=== PATIENT | male | born 1970 | race Two or more races ===

== ENCOUNTER 2025-10-22 15:21 | Emergency (ER) | payer OTHER, SELFPAY ==
[2025-10-22 15:36] VITALS: BP 153/92
[2025-10-22 16:10] LABS: Hematocrit 48.6 % (39.0-52.0); Hemoglobin 15.8 g/dL (13.0-18.0); Mean Corp Hgb Conc. 32.5 g/dL (33.0-37.0); Mean Corpuscular Volume 81.5 fL (80.0-94.0); Nucleated Red Blood Cells % 0 % (-); Platelet Count 324 10^3/uL (130-400); Red Cell Dist. Width 13.0 % (11.5-14.5)
[2025-10-22 16:20] LABS: INR 1.05; PT 13.8 Sec (11.4-14.6)
[2025-10-22 16:23] LABS: ALT (SGPT) 35 U/L (0-50); AST (SGOT) 29 U/L (17-59); Albumin 4.9 g/dl (3.5-5.0); Alkaline Phosphatase 114 U/L (38-126); Blood Urea Nitrogen 14 mg/dl (9-20); Calcium 9.7 mg/dl (8.4-10.2); Carbon Dioxide 25 mmol/L (22-30); Chloride 102 mmol/L (98-107); Glucose 132 mg/dl (70-99); Potassium 3.8 mmol/L (3.5-5.1); Sodium 137 mmol/L (135-145); Total Protein 8.7 g/dl (6.3-8.2); eGFR > 60.00
[2025-10-22 16:34] LABS: Troponin I < 0.012 ng/ml
[2025-10-22 16:54] VITALS: BP 132/85
--- NOTE | 2025-10-22 20:20 | ED.CVA ---
History of Present Illness
General
Chief Complaint: CVA/TIA Symptoms
Source: patient and family
Exam Limitations: none
Time Seen by Provider: 10/22/25 19:55
Nursing documentation reviewed up to this point in time: agreed with
Onset of Stroke Symptoms
Onset of symptoms known: Yes
Date of onset of symptoms: 10/22/25
Time of onset of symptoms: 12:00
History of Present Illness
History of Present Illness:
55-year-old male originally from [facility] now works in the [employer] company with his family around 12 noon for an hour he had some numbness of his left arm possibly his left leg no slurred speech, no headache no visual changes, ex-smoker none recently,
tells me last blood work A1c was a bit elevated not on meds, now feels pretty much back to his baseline, history confirmed through his family member she states he looks at his baseline speech appears clear
Past History
Past History
ED Past Medical History: NIDDM (Slightly elevated A1c); Negative HTN
Social History
Tobacco: Former smoker
Alcohol: None
Drug: None
Personal:
Living: with family
Employment: Employed
Review of Systems
Review of Systems
All Other Systems: Not applicable
Constitutional: Denies fever
EENT: Reports no symptoms
Respiratory: Reports no symptoms
Cardiac: Reports no symptoms
ABD/GI: Reports no symptoms
: Reports no symptoms
Musculoskeletal: Reports no symptoms
Neurological: Reports numbness; Denies dizzy, headache or weakness
Phy Exam
Physical Exam
Physical Exam:
Physical Exam
General: no apparent distress, not acutely ill
Neck: No jaundice
Heart: s1/s2 regular rate and rhythm, no murmur. equal radial pulses.
Lungs: no acute respiratory distress. clear bilaterally
Abdomen: Nontender
Neuro: alert and oriented. no focal neurological deficits
Skin: no rash
Psychiatric: well kept. interactive and cooperative
Extremities: no edema.
Scores
NIH Stroke Score
Level of Consciousness: 0 - Alert
LOC Questions: 0-Answers both correctly
LOC Commands: 0-Performs both correctly
Best Horizontal Gaze: 0-Normal
Visual Levi: 0=Normal, no visual loss
Facial Palsy: 0=Normal, symmetrical
Motor - Right Arm: 0=No drift 10 seconds
Motor - Left Arm: 0=No drift 10 seconds
Motor - Right Le-No drift 5 seconds
Motor - Left Le-No drift 5 seconds
Limb Ataxia: 0-Absent
Sensation: 0-Normal
Best Language: 0-No aphasia
Dysarthria: 0-Normal
Extinction and Inattention: 0-No abnormality
NIH Total Score:: 0
Course
Orders/Labs/Results
Orders:
Orders
10/22/25 15:39
Electrocardiogram (*1) Urgent
Reason for Study: Chest Pain
10/22/25 15:40
EKG- Treatment ONCE
10/22/25 15:45
Complete Blood Count/With Diff Urgent
Comprehensive Metabolic Panel Urgent
Prothrombin Time Urgent
Troponin I Urgent
10/22/25 20:04
CT Head & Neck Angio W/wo IV Urgent
Comment:
Reason For Exam: left arm numbnress
10/22/25 21:45
Dexamethasone Sod Phosphate [Decadron] 10 mg IV NOW STA
Mag Hydrox/Al Hydrox/Simeth [Maalox] 30 ml PO NOW STA
Abnormal Lab Results
10/22/25
15:45
MCH 26.5 L pg
(27.0-31.0)
MCHC 32.5 L g/dL
(33.0-37.0)
Glucose 132 H mg/dl
(70-99)
Total Protein 8.7 H g/dl
(6.3-8.2)
10/22/25 15:45
10/22/25 15:45
Vital Signs
Initial and Last Documented VS:
Initial Vital Signs
Temp Pulse Resp BP Pulse Ox
97.7 F 80 16 153/92 99
10/22/25 15:36 10/22/25 15:36 10/22/25 15:36 10/22/25 15:36 10/22/25 15:36
Last Documented Vital Signs
Temp Pulse Resp BP Pulse Ox
97.7 F 76 14 132/85 98
10/22/25 15:36 10/22/25 16:54 10/22/25 16:54 10/22/25 16:54 10/22/25 20:21
MDM/Problems Addressed
Differential Diagnosis Includes:
TIA CVA peripheral neuropathy
MDM/Problems Addressed:
Left arm numbness
*Radiology
Radiology exam reviewed: radiology read reviewed
*Pulse Oximetry
SaO2: 98
Oxygen Mode of Delivery: Room air
Patient hypoxic: no
*EKG
Interpreted by ED Provider?: Yes
Interpretation: normal
Comparison EKG: no comparison EKG present
Heart Rate: 78
Rate: normal
Rhythm: sinus
Ischemia: non-specific ST changes
*Industrial Analyst Interpretation
Rate: normal
Interpretation: normal
Heart Rate: 80
Rhythm: sinus
*Critical Care Note
Total Time (30-74mins, 75-104mins- exclusive of procedures): Not Applicable
Update Note
Update Note:
Update 9:[address] report noted, patient is a nonfocal neurologic exam, he tells me his symptoms were predominantly in his left arm denies anything in his left leg, no facial palsy no headache no slurred speech will treat him as a peripheral
neuropathy, steroids, some an acids, close PCP follow-up ER if worsening symptoms
ED Attending Note
-
Portions of this chart may have been created with voice recognition software.� Occasional wrong word or��sound alike� substitutions may have occurred due to the inherent limitations of voice recognition software.
Discharge Plan
Departure
Patient Disposition: Home (Routine Discharge)
Date of Disposition: 10/22/25
Time of Disposition: 21:53
Patient with high blood pressure during this ER visit?: No
Condition: Good
Covid-19: Not Applicable
Discharge Problem:
Arm numbness left
Instructions: Paresthesia (DC)
Prescriptions:
New
methylprednisolone [Medrol (David)] 4 mg tablets,dose pack
See Rx Instructions .ROUTE .COMPLEX Qty: 21 0RF
Rx Instructions:
for 6 days
pantoprazole [Protonix] 40 mg tablet,delayed release (DR/EC)
40 mg PO DAILY Qty: 30 0RF
Referrals:
Damon Roque MD [Family Provider, Internal Medicine] - Tomorrow
Interventions
Interventions:
*General Assessment Last Done: 10/22/25 20:09
*Neglect/Abuse Screening Last Done: 10/22/25 20:09
*ED COVID-19 Vaccine History Last Done: 10/22/25 20:09
*ED Influenza Vaccine History Last Done: 10/22/25 20:09
[facility] Fall Risk Assessment Tool Last Done: 10/22/25 20:42
*Risk Screen - Suicide (C-SSRS) Last Done: 10/22/25 15:36
ED- Pulmonary Assessment Last Done: 10/22/25 20:09
ED- Neurological Assessment Last Done: 10/22/25 20:09
ED- Cardiac Assessment Last Done: 10/22/25 20:09
ED Swallowing Screen Last Done: 10/22/25 20:09
Discharge Date and Time
Print Language: BELGIAN
[2025-10-22 20:24] VITALS: BP 150/85
[2025-10-22 21:43] VITALS: BP 124/84
[2025-10-22 22:00] VITALS: BP 117/76
[2025-10-22] MEDS: MAALOX 30 ML PO (22:16)
[2025-10-22] MEDS: DECADRON 10 MG IV (22:16)
== END 2025-10-22 22:30 | disposition home or self-care (01) ==
LOC: EMR 15:21
PROVIDERS: Emergency Medicine; EMERGENCY PHYSICIAN Emergency Medicine; FAMILY PHYSICIAN Internal Medicine
DX: R20.0 Anesthesia of skin (principal); E11.9 Type 2 diabetes mellitus without complications; Z87.891 Personal history of nicotine dependence
CPT/HCPCS: 96374; 99284; 70496; 70498; 80053; 84484; 85025; 85610; 93005; Q9967